=== PATIENT | female | born 1990 | race African-American/Black ===

== ENCOUNTER 2017-08-14 16:44 | Emergency (ER) | payer OTHER ==
[~2017-08-14] VITALS: Ht 165.1 cm; Wt 88.0 kg
[2017-08-14 16:54] VITALS: BP 115/75
== END 2017-08-14 19:30 | disposition left against medical advice (07) ==
LOC: ER 16:44
DX: R51 Headache (principal); Z53.21 Procedure and treatment not carried out due to patient leaving prior to being seen by health care provider